=== PATIENT | female | born 1940 | race Hispanic/Latino ===

== ENCOUNTER 2017-12-17 19:32 | Emergency (ER) | payer OTHER ==
[~2017-12-17 19:32] MED LIST: DIAZ2TAB3 PO; HYDR12.54 PO; LISI40TA4 PO; METF-446 PO
[2017-12-17 20:03] LABS: APPEARANCE,URINE Clear (CLEAR); BILIRUBIN,URINE Negative (NEGATIVE); COLOR,URINE Yellow (YELLOW); GLUCOSE, URINE (UA) Negative (NEGATIVE); KETONES,URINE Negative (NEGATIVE); LEUKOCYTE ESTERASE ,URINE Large (NEGATIVE); NITRATE,URINE Negative (NEGATIVE); OCCULT BLOOD,URINE Negative (NEGATIVE); PH,URINE 5.5 (5.0-8.0); PROTEIN,URINE Negative (NEGATIVE); UROBILINOGEN,URINE 0.2 mg/dL (0.2-1.0)
[2017-12-17 20:05] LABS: BASOPHILS % (AUTO) 1.2 % (0.0-5.0); EOSINOPHILS % (AUTO) 1.2 % (0.0-8.0); HEMATOCRIT 37.1 % (36-48); LYMPHOCYTES % (AUTO) 26.9 % (21.0-51.0); MEAN CORPUSCULAR HEMOGLOBIN 28.4 pg (27.0-33.0); MEAN CORPUSCULAR VOLUME 86.1 fL (79-99); MONOCYTES % (AUTO) 6.5 % (3.0-13.0); NEUTROPHILS % (AUTO) 64.2 % (40.0-77.0); PLATELET COUNT (AUTO) 292 K/uL (130-400); RED BLOOD CELL COUNT(AUTO) 4.31 MIL/uL (4.00-5.50); RED CELL DISTRIBUTION WIDTH 14.2 % (11.0-15.5); WHITE BLOOD COUNT (AUTO) 10.1 K/uL (4.8-10.8)
[2017-12-17 20:15] LABS: POTASSIUM 3.4 mmol/L (3.5-5.1)
[2017-12-17 20:20] LABS: ALBUMIN 3.9 g/dL (3.5-5.0); BILIRUBIN,TOTAL 0.2 mg/dL (0.2-1.0); TOTAL PROTEIN, SERUM 7.7 g/dL (6.0-8.3)
[2017-12-17 20:29] LABS: CREATINE KINASE, TOTAL 36 U/L (21-232); MYOGLOBIN 17 ng/mL (10-92); TROPONIN I < 0.04 ng/mL (0.00-0.06)
[2017-12-17 20:30] LABS: BACTERIA,URINE Rare /HPF (None Seen); RBC,URINE None Seen /HPF (0-1)
[2017-12-17] MEDS ORDERED: POTASSIUM BICARB/CIT AC 25 MEQ TABLET.EFF ONE (20:37)
== END 2017-12-17 20:47 | disposition home or self-care (01) ==
LOC: EDH 19:32
DX: E11.65 Type 2 diabetes mellitus with hyperglycemia (principal); I10 Essential (primary) hypertension; R53.1 Weakness; E87.6 Hypokalemia; Z86.73 Personal history of transient ischemic attack (TIA), and cerebral infarction without residual deficits
CPT/HCPCS: 36415; 71045; 80053; 81001; 82550; 83874; 84484; 85025; 87804; 93005

== ENCOUNTER 2018-02-11 23:44 | Emergency (ER) | payer OTHER ==
[2018-02-12 00:56] LABS: BASOPHILS % (AUTO) 0.9 % (0.0-5.0); EOSINOPHILS % (AUTO) 1.5 % (0.0-8.0); HEMATOCRIT 37.8 % (36-48); LYMPHOCYTES % (AUTO) 34.7 % (21.0-51.0); MEAN CORPUSCULAR HEMOGLOBIN 28.1 pg (27.0-33.0); MEAN CORPUSCULAR HGB CONC 32.9 g/dL (32.0-36.0); MEAN CORPUSCULAR VOLUME 85.3 fL (79-99); MONOCYTES % (AUTO) 7.6 % (3.0-13.0); NEUTROPHILS % (AUTO) 55.3 % (40.0-77.0); NUCLEATED RED BLOOD CELLS 0.1 % (0.0-0.19); PLATELET COUNT (AUTO) 312 K/uL (130-400); RED BLOOD CELL COUNT(AUTO) 4.43 MIL/uL (4.00-5.50); RED CELL DISTRIBUTION WIDTH 13.8 % (11.0-15.5); WHITE BLOOD COUNT (AUTO) 11.6 K/uL (4.8-10.8)
[2018-02-12 01:03] LABS: APPEARANCE,URINE Clear (CLEAR); BILIRUBIN,URINE Negative (NEGATIVE); COLOR,URINE Yellow (YELLOW); GLUCOSE, URINE (UA) Negative (NEGATIVE); KETONES,URINE Negative (NEGATIVE); LEUKOCYTE ESTERASE ,URINE Large (NEGATIVE); NITRATE,URINE Negative (NEGATIVE); OCCULT BLOOD,URINE Negative (NEGATIVE); PROTEIN,URINE Negative (NEGATIVE); UROBILINOGEN,URINE 0.2 mg/dL (0.2-1.0)
[2018-02-12 01:06] LABS: CREATININE 0.8 mg/dL (0.5-1.5); POTASSIUM 3.7 mmol/L (3.5-5.1)
[2018-02-12 01:09] LABS: INR 0.89 (0.85-1.15); PARTIAL THROMBOPLASTIN TIME 25.1 SEC (26.3-35.5); PROTHROMBIN TIME 9.4 SEC (9.6-11.6)
[2018-02-12 01:10] LABS: ALBUMIN 3.6 g/dL (3.5-5.0); BILIRUBIN,TOTAL 0.3 mg/dL (0.2-1.0); TOTAL PROTEIN, SERUM 7.3 g/dL (6.0-8.3)
[2018-02-12 01:11] LABS: B-TYPE NATRIURETIC PEPTIDE 11 pg/mL (0-100)
[2018-02-12 01:18] LABS: BACTERIA,URINE Few /HPF (None Seen); RBC,URINE 0-1 /HPF (0-1); SQUAMOUS EPITHELIAL CELL,UR 0-2 /HPF (0-2)
[2018-02-12] MEDS ORDERED: CEPHALEXIN 500 MG CAPSULE ONE (01:52)
[2018-02-12] MEDS ORDERED: METOPROLOL TARTRATE 1 MG/ML 5ML VIAL IV ONE (01:54)
[2018-02-12] MEDS ORDERED: CLONIDINE HCL 0.1 MG TABLET ONE (02:00)
== END 2018-02-12 02:36 | disposition home or self-care (01) ==
LOC: EDH 23:44
DX: I16.9 Hypertensive crisis, unspecified (principal); I10 Essential (primary) hypertension; E11.9 Type 2 diabetes mellitus without complications; F41.9 Anxiety disorder, unspecified; F32.9 Major depressive disorder, single episode, unspecified; Z90.710 Acquired absence of both cervix and uterus; Z86.73 Personal history of transient ischemic attack (TIA), and cerebral infarction without residual deficits
CPT/HCPCS: 36415; 70450; 71045; 80053; 81001; 83880; 84484; 85025; 85610; 85730; 87088; 93005; J3490

== ENCOUNTER 2023-08-22 15:35 | Emergency (ER) | payer MEDICAID, OTHER ==
[~2023-08-22] VITALS: Ht 160 cm; Wt 59.9 kg
[~2023-08-22 15:35] MED LIST changes: -LISI40TA4 PO; +LISI40TA9 PO
[2023-08-22] MEDS: 0.9%NACL 1000ML 1,000 ML IV ONE (16:05)
[2023-08-22 16:12] LABS: BASOPHILS # (AUTO) 0.08 K/uL (0.00-0.20); BASOPHILS % (AUTO) 0.7 % (0.0-5.0); EOSINOPHILS # (AUTO) 0.51 K/uL (0.00-0.70); EOSINOPHILS % (AUTO) 4.8 % (0.0-8.0); HEMATOCRIT 38.7 % (36-48); IMMATURE GRANULOCYTE ABSOLUTE 0.04 K/uL (0-1); LYMPHOCYTES # (AUTO) 2.1 K/uL (1.0-4.8); LYMPHOCYTES % (AUTO) 19.2 % (21.0-51.0); MEAN CORPUSCULAR HEMOGLOBIN 28.4 pg (27.0-33.0); MEAN CORPUSCULAR HGB CONC 33.3 g/dL (32.0-36.0); MEAN CORPUSCULAR VOLUME 85.2 fL (79-99); MONOCYTES # (AUTO) 0.8 K/uL (0.1-1.0); MONOCYTES % (AUTO) 7.4 % (3.0-13.0); NEUTROPHILS # (AUTO) 7.2 K/uL (1.8-7.7); NEUTROPHILS % (AUTO) 67.5 % (40.0-77.0); PLATELET COUNT (AUTO) 299 K/uL (130-400); RED BLOOD CELL COUNT(AUTO) 4.54 MIL/uL (4.00-5.50); RED CELL DISTRIBUTION WIDTH 13.2 % (11.0-15.5); WHITE BLOOD COUNT (AUTO) 10.7 K/uL (4.8-10.8)
[2023-08-22 16:59] LABS: CREATININE 1.3 mg/dL (0.5-1.0)
[2023-08-22 17:14] LABS: ALBUMIN 3.5 g/dL (3.5-5.0); BILIRUBIN,TOTAL 0.2 mg/dL (0.2-1.0); TOTAL PROTEIN, SERUM 7.1 g/dL (6.0-8.3)
[2023-08-22 17:17] LABS: APPEARANCE,URINE CLOUDY (CLEAR); BILIRUBIN,URINE NEGATIVE (NEGATIVE); COLOR,URINE YELLOW (YELLOW); GLUCOSE, URINE (UA) NEGATIVE (NEGATIVE); KETONES,URINE NEGATIVE (NEGATIVE); LEUKOCYTE ESTERASE ,URINE 500 Leu/uL (NEGATIVE); NITRATE,URINE NEGATIVE (NEGATIVE); PH,URINE 5.5 (5.0-8.0); PROTEIN,URINE 20 mg/dL (NEGATIVE); UROBILINOGEN,URINE 0.2 mg/dL (0.2-1.0)
[2023-08-22 17:19] LABS: ADD UA MICROSCOPIC YES
[2023-08-22 17:41] LABS: BACTERIA,URINE RARE /HPF (None Seen); MUCUS,URINE RARE LPF (None Seen); NON-SQUAMOUS EPITHELIAL CELL 4 /HPF (0-2); OTHER CASTS, URINE 2 /LPF (None Seen); SQUAMOUS EPITHELIAL CELL,UR RARE /HPF (0-2); UNCLASSIFIED CRYSTAL 2 /HPF (None Seen); WBC CLUMP FEW /HPF (0-1); WBC,URINE 51-100 /HPF (0-1)
[2023-08-22] MEDS ORDERED: AMOX1TAB16 PO (17:59)
[2023-08-22] MEDS: AMOX/CLAV 875/125MG TAB PO ONE (18:21)
[2023-08-22 18:24] VITALS: BP 139/51; PULSE 70; RESP 14; O2SAT 99
== END 2023-08-22 18:26 | disposition home or self-care (01) ==
LOC: EDH 15:35
DX: N30.01 Acute cystitis with hematuria (principal); E86.0 Dehydration
CPT/HCPCS: 99284; 96360; 84484; 80053; 85025; 87088; 81001; 36415; 93005; J7030

== ENCOUNTER 2023-11-01 12:13 | Emergency (ER) | payer MEDICAID ==
[~2023-11-01] VITALS: Ht 160 cm; Wt 61.2 kg
[~2023-11-01 12:13] MED LIST changes: +Cefuroxime Axetil PO; -DIAZ2TAB3 PO; -HYDR12.54 PO; -LISI40TA9 PO; +LOSA-418 PO; -METF-446 PO
[2023-11-01 13:16] LABS: BASOPHILS # (AUTO) 0.05 K/uL (0.00-0.20); BASOPHILS % (AUTO) 0.6 % (0.0-5.0); EOSINOPHILS # (AUTO) 0.07 K/uL (0.00-0.70); EOSINOPHILS % (AUTO) 0.9 % (0.0-8.0); IMMATURE GRANULOCYTE ABSOLUTE 0.03 K/uL (0-1); LYMPHOCYTES # (AUTO) 1.2 K/uL (1.0-4.8); LYMPHOCYTES % (AUTO) 14.7 % (21.0-51.0); MEAN CORPUSCULAR HEMOGLOBIN 29.1 pg (27.0-33.0); MEAN CORPUSCULAR HGB CONC 33.8 g/dL (32.0-36.0); MEAN CORPUSCULAR VOLUME 86.1 fL (79-99); MONOCYTES # (AUTO) 0.4 K/uL (0.1-1.0); MONOCYTES % (AUTO) 5.3 % (3.0-13.0); NEUTROPHILS # (AUTO) 6.3 K/uL (1.8-7.7); NEUTROPHILS % (AUTO) 78.1 % (40.0-77.0); PLATELET COUNT (AUTO) 322 K/uL (130-400); RED BLOOD CELL COUNT(AUTO) 3.95 MIL/uL (4.00-5.50); RED CELL DISTRIBUTION WIDTH 13.9 % (11.0-15.5); WHITE BLOOD COUNT (AUTO) 8.1 K/uL (4.8-10.8)
[2023-11-01 13:30] LABS: CREATININE 1.1 mg/dL (0.5-1.0)
[2023-11-01] MEDS: hydrALAZine 20MG/ML VIAL IV ONE (14:36)
[2023-11-01] MEDS: KCL 20 MEQ ERTAB PO ONE (14:36)
[2023-11-01] MEDS: acetaMINOPHEN 500 MG TABLET PO ONE (15:18)
[2023-11-01] MEDS: morPHINE 2 MG SYG IVP ONE (15:19)
[2023-11-01] MEDS: ASPIRIN 81MG CHEW TAB PO ONE (16:19)
[2023-11-01] MEDS ORDERED: IOHEXOL-350 75 ML VIAL IV ONE (17:05)
[2023-11-01 17:34] LABS: CREATININE 0.9 mg/dL (0.5-1.0); POTASSIUM 3.9 mmol/L (3.5-5.1)
[2023-11-01] MEDS: dilTIAZem 25MG INJ IVP ONE (20:00)
[2023-11-01] MEDS: NITROGLYCERIN 50MG/D5W 250ML 1 BOT IV PRN (22:42)
[2023-11-01 23:10] LABS: INR 0.95 (0.85-1.15); PROTHROMBIN TIME 10.3 SEC (9.6-11.6)
[2023-11-01 23:11] LABS: PARTIAL THROMBOPLASTIN TIME 23.4 SEC (26.3-35.5)
[2023-11-01] MEDS: HEParin 25,000 UNITS/250ML D5W 250 ML IV PRN (23:21)
[2023-11-02 00:10] VITALS: BP 176/84; PULSE 82; RESP 18; TEMP 98.7; O2SAT 98
== END 2023-11-02 00:20 | disposition short-term general hospital (02) ==
LOC: EDH 12:13
DX: I21.4 Non-ST elevation (NSTEMI) myocardial infarction (principal); I10 Essential (primary) hypertension; I65.23 Occlusion and stenosis of bilateral carotid arteries; E87.6 Hypokalemia; R54 Age-related physical debility; I16.0 Hypertensive urgency; E11.9 Type 2 diabetes mellitus without complications; E78.00 Pure hypercholesterolemia, unspecified; Z79.899 Other long term (current) drug therapy; Z90.710 Acquired absence of both cervix and uterus
CPT/HCPCS: 99291; 72125; 96365; 96375; 71045; 84484 ×2; 80048 ×2; 85025; 85610; 85730; 36415; 72170; 70496; 70498; 96368; 93005 ×2; 70450; J2270; J0360; J3490 ×2; J1644; Q9967